=== PATIENT | female | born 1940 | race Caucasian/White ===

== ENCOUNTER 2016-03-28 11:13 | Emergency (ER) | payer OTHER ==
[~2016-03-28] VITALS: Ht 167.6 cm; Wt 85.0 kg
[~2016-03-28 11:13] MED LIST: ALBU1AER INH; ATOR20TA42 PO; CLOP75 PO; INHALER INH; NEB INH; VITA100020 PO
[2016-03-28 11:21] VITALS: BP 124/76; PULSE 95; RESP 16; TEMP 99.2; O2SAT 97
[2016-03-28] MEDS ORDERED: TYLE325T PO (11:27)
[2016-03-28 11:32] VITALS: O2SAT 97
[2016-03-28 11:43] LABS: AUTOMATED NEUTROPHIL # 6.9 TH/MM3 (1.8-7.7); BASOPHIL # 0.2 TH/MM3 (0-0.2); BASOPHIL % 2.1 % (0.0-2.0); EOSINOPHIL % 0.3 % (0.0-4.0); HEMATOCRIT 40.3 % (35.0-46.0); HEMO FLAGS DIFF FINAL; LYMPH % 19.7 % (9.0-44.0); LYMPHOCYTE # 1.9 TH/MM3 (1.0-4.8); MEAN CELL VOLUME 87.4 FL (80.0-100.0); MEAN CORPUSCULAR HEMOGLOBIN 28.7 PG (27.0-34.0); MEAN CORPUSCULAR HGB CONC 32.9 % (32.0-36.0); MONO % 6.1 % (0.0-8.0); NEUT % 71.8 % (16.0-70.0); PLATELET COUNT 494 TH/MM3 (150-450); RED BLOOD COUNT 4.61 MIL/MM3 (4.00-5.30); RED CELL DISTRIBUTION WIDTH 13.4 % (11.6-17.2); WHITE BLOOD COUNT 9.6 TH/MM3 (4.0-11.0)
[2016-03-28 11:51] LABS: CHLORIDE 99 MEQ/L (98-107); POTASSIUM 4.1 MEQ/L (3.5-5.1); SODIUM (NA) 137 MEQ/L (136-145)
[2016-03-28 11:54] LABS: ANION GAP 11 MEQ/L (5-15); BICARBONATE 27.1 MEQ/L (21.0-32.0); BLOOD UREA NITROGEN 10 MG/DL (7-18)
[2016-03-28 11:57] LABS: GLOMERULAR FILTRATION RATE 89 ML/MIN (>89)
[2016-03-28] MEDS ORDERED: LORazepam 2 MG/ML VIAL IV PUSH ONE (12:00)
[2016-03-28 12:04] LABS: CREATINE KINASE 31 U/L (26-192)
--- NOTE | 2016-03-28 12:33 | RADHPO ---
EXAM DATE/TIME: 03/28/2016 11:38 [place] COMPARISON: No previous studies available for comparison. INDICATIONS : Chest pain MEDICAL HISTORY : None. SURGICAL HISTORY : Cardiac stent ENCOUNTER: Initial ACUITY: 2 days PAIN SCORE: 3/10 LOCATION: Bilateral chest FINDINGS: There is extensive stent graft placement of the thoracic aorta extending from the ascending thoracic aorta to the diaphragmatic hiatus and possibly beyond. No focal consolidation. No effusion. Heart siz e upper limits normal. No pneumothorax. CONCLUSION: 1. Extensive stent graft placement of the thoracic aorta. No focal consolidation or effusion. Michael Mixon MD on March 28, 2016 at 12:30 Board Certified Radiologist. This report was verified electronically.
--- NOTE | 2016-03-28 12:35 | PD ---
HPI . Chest pain Chief Complaint: Chest Pain Time Seen by Provider: 11:39 Travel History International Travel<30 days: No Contact w/Intl Traveler<30days: No Traveled to known affect area: No History of Present Illness HPI Patient presents with chest pain which has been ongoing for at least 3 weeks. She states that she had stents placed in the [facility] in [facility] on 03/05. She states that the stent placement did not improve her chest pain. She states that she presents to us for evaluation of it today because she is sweaty and shaky and her blood pressure is high. PFSH Past Medical History Cancer: Yes (SKIN) Cardiovascular Problems: Yes (stent) Chest Pain: Yes COPD: Yes Diabetes: No Diminished Hearing: No Gastrointestinal Disorders: No Glaucoma: No Genitourinary: No Headaches: Yes Hypertension: No Medical other: No Musculoskeletal: No Reproductive: No Respiratory: Yes Thyroid Disease: No Tetanus Vaccination: Unknown ?: Not Past Surgical History Abdominal Surgery: Yes (APPENDECTOMY) Appendectomy: Yes Coronary Stent: Yes (04/08) Hysterectomy: Yes Oral Surgery: Yes (TUMOR IN THROAT REMOVED) Other Surgery: Yes Social History Alcohol Use: Yes (SOCIAL) Tobacco Use: Yes (1 PPD ) Substance Use: No Allergies-Medications (Allergen,Severity, Reaction): Coded Allergies: Aspirin (Verified Allergy, Severe, 05/10/15) Reported Meds & Prescriptions Reported Meds & Active Scripts Active Reported Tylenol (Acetaminophen) 325 Mg Tab 650 Mg PO Q4H PRN Review of Systems Except as stated in HPI: all other systems reviewed are Neg General / Constitutional: Positive: Other (diaphoresis) Cardiovascular: Positive: Chest Pain or Discomfort Neurologic: Positive: Tremor Physical Exam Narrative GENERAL: This is a healthy-appearing older woman who is able to speak in complete sentences without any difficulty. She does not appear to be in any acute distress. SKIN: Warm and dry. HEAD: Atraumatic. Normocephalic. EYES: Pupils equal and round. ENT: No nasal bleeding or discharge. Mucous membranes pink and moist. NECK: Trachea midline. Neck supple CARDIOVASCULAR: Regular rate and rhythm. Heart sounds are normal. RESPIRATORY: No accessory muscle use. Lungs are clear with full air movement throughout. Chest wall is nontender. GASTROINTESTINAL: Abdomen soft, non-tender, nondistended. MUSCULOSKELETAL: No obvious deformities. No edema. There is no calf tenderness. NEUROLOGICAL: Awake and alert. No obvious cranial nerve deficits. Motor grossly within normal limits. Normal speech. PSYCHIATRIC: Appropriate mood and affect; insight and judgment normal. Data Data Last Documented VS Vital Signs Date Time Temp Pulse Resp B/P Pulse Ox O2 Delivery O2 Flow Rate FiO2 03/28/16 11:32 97 03/28/16 11:32 Room Air 03/28/16 11:23 95 16 03/28/16 11:21 99.2 124/76 Orders Electrocardiogram (03/28/16 11:30) Complete Blood Count With Diff (03/28/16 11:30) Basic Metabolic Panel (Bmp) (03/28/16 11:30) Ckmb (Isoenzyme) Profile (03/28/16 11:30) Troponin I (03/28/16 11:30) Chest, Single Ap (03/28/16 11:30) Iv Access Insert/Monitor (03/28/16 11:30) Ecg Monitoring (03/28/16 11:30) Oxygen Administration (03/28/16 11:30) Oximetry (03/28/16 11:30) Lorazepam Inj (Ativan Inj) (03/28/16 12:00) Labs Laboratory Tests Test 03/28/16 11:30 White Blood Count 9.6 TH/MM3 Red Blood Count 4.61 MIL/MM3 Hemoglobin 13.3 GM/DL Hematocrit 40.3 % Mean Corpuscular Volume 87.4 FL Mean Corpuscular Hemoglobin 28.7 PG Mean Corpuscular Hemoglobin 32.9 % Concent Red Cell Distribution Width 13.4 % Platelet Count 494 TH/MM3 Mean Platelet Volume 8.0 FL Neutrophils (%) (Auto) 71.8 % Lymphocytes (%) (Auto) 19.7 % Monocytes (%) (Auto) 6.1 % Eosinophils (%) (Auto) 0.3 % Basophils (%) (Auto) 2.1 % Neutrophils # (Auto) 6.9 TH/MM3 Lymphocytes # (Auto) 1.9 TH/MM3 Monocytes # (Auto) 0.6 TH/MM3 Eosinophils # (Auto) 0.0 TH/MM3 Basophils # (Auto) 0.2 TH/MM3 CBC Comment DIFF FINAL Differential Comment Sodium Level 137 MEQ/L Potassium Level 4.1 MEQ/L Chloride Level 99 MEQ/L Carbon Dioxide Level 27.1 MEQ/L Anion Gap 11 MEQ/L Blood Urea Nitrogen 10 MG/DL Creatinine 0.65 MG/DL Estimat Glomerular Filtration 89 ML/MIN Rate Random Glucose 108 MG/DL Calcium Level 8.8 MG/DL Total Creatine Kinase 31 U/L Troponin I LESS THAN 0.02 NG/ML MDM Medical Decision Making Medical Screen Exam Complete: Yes Emergency Medical Condition: Yes Interpretation(s) EKG shows a normal sinus rhythm with no ST segment elevation or depression. Differential Diagnosis Differential diagnosis of chest pain includes but is not limited to musculoskeletal pain, pulmonary embolism, acute coronary syndrome, pneumonia, pleurisy Narrative Course Patient presents complaining with chest pain which has been an ongoing issue for weeks. Has had stent placement at an outside facility. The stent placement made no change in her symptoms. Her CBC is normal. Chemistries are normal. CK and troponin are negative. Chest x-ray to my interpretation shows clear lungs. It appears that she has an aortic stent No acute etiology for symptoms has been found. She has had symptoms for 3 weeks or more. She is stable for discharge. Diagnosis Primary Impression: Chest pain Qualified Code: R07.9 - Chest pain, unspecified type Disposition: DISCHARGE HOME Condition: Stable Cathy Lloyd MD Mar 28, 2016 12:35
[2016-03-28 12:51] VITALS: BP 171/85; PULSE 90; RESP 17; O2SAT 98
--- NOTE | 2016-03-28 22:22 | EKG ---
Date Performed: 03/28/2016 Time Performed: 11:10:42 PTAGE: 75 years EKG: Sinus rhythm Normal ECG PREVIOUS TRACING : 05/10/2015 12.02 Since previous tracing, no significant change noted DOCTOR: Daniel Catherine Interpretating Date/Time 03/28/2016 22:21:17
== END 2016-03-28 13:00 | disposition home or self-care (01) ==
LOC: PHED 11:13
DX: R07.9 Chest pain, unspecified (principal); J44.9 Chronic obstructive pulmonary disease, unspecified; F17.210 Nicotine dependence, cigarettes, uncomplicated; Z95.5 Presence of coronary angioplasty implant and graft
CPT/HCPCS: 71010; 80048; 82550; 84484; 85025; 93005; 96374; 99285; J2060